=== PATIENT | male | born 1955 | race Caucasian/White ===

== ENCOUNTER 2016-06-03 14:47 | Emergency (ER) | payer MEDICAID ==
[~2016-06-03] VITALS: Ht 172.7 cm; Wt 65.0 kg
[~2016-06-03 14:47] MED LIST: ALBU17AE12; ALBU8.5H3 INH; ALBU8.5H5 IH; AZIT250T94 PO; BECL8.7A5; BENZ100C70 PO; BUDE6HFA IH; CODE118S PO; DESL5TAB20 PO; GLIP5TAB13; INSU100C5 SQ; INSU100V18; INSU100V19; LISI-313; LISINOPRIL; LOSA100T47 PO; MECLIZINE HCL25 M1 PO; MELO-110 PO; METF500T3; METF500T4; METF500T4 PO; MONT10TA21 PO; PRED-253; PRED20TA PO; PROVENTIL; RTPRO IH; SIMV40TA2; SYMB80120 INHALATION
[2016-06-03 14:49] VITALS: Ht 172.7 cm; Wt 65.0 kg
[2016-06-03] MEDS ORDERED: predniSONE 20 MG TAB PO ONE (15:30)
[2016-06-03] MEDS ORDERED: ALBUTEROL 0.5% (NEB) 2.5 MG/0.5 ML AMP HHN STA (15:30)
[2016-06-03] MEDS ORDERED: ALBU18HF INHALATION (16:43)
[2016-06-03] MEDS ORDERED: PRED20TA PO (16:43)
[2016-06-03] MEDS ORDERED: FLUT9.9S NASAL (16:46)
--- NOTE | 2016-06-03 16:46 | ERD ---
ER Documentation Chief Complaint Date/Time DATE: 06/03/16 TIME: 16:44 Chief Complaint cough with sore throat and bilateral inspiratory and expiratory wheezing HPI This 61-year-old male presents with cough and wheezing for last 2 days. He has nasal congestion as well. Denies fevers or productive mucus or purulent sputum. He is out of his Ventolin inhaler per ROS All systems reviewed and are negative except as per history of present illness. Medications Home Meds Active Scripts Prednisone* (Prednisone*) 20 Mg Tab, 60 MG PO DAILY for 5 Days, #12 TAB Start June 04, 2016. Take 60 mg by mouth for 2 days then 40 mg by mouth for 3 days. Prov:RADHA LEYVA MD 06/03/16 Albuterol Sulfate* (Ventolin HFA*) 18 Gm Hfa.aer.ad, 2 PUFF INHALATION Q4H, #1 INHALER Prov:RADHA LEYVA MD 06/03/16 Budesonide-Formoterol Fumarate* (Symbicort*) 80-4.5 Inha, 2 PUFFS INHALATION BID , #1 EACH Prov:ADRIA,ARASH DO 10/17/15 Albuterol Sulfate* (Proair HFA*) 8.5 Gm Hfa.aer.ad, 2 PUFF INH Q4H Y for WHEEZING AND SOB, #1 INHALER Prov:ADRIAARASH DO 10/17/15 Prednisone* (Prednisone*) 20 Mg Tab, 40 MG PO DAILY for 4 Days, TAB Prov:ADRIAARASH DO 10/17/15 Promethazine w/Codeine (Phenergan w/Codeine Syrup) 5 Ml Syrup, 5 ML PO Q6 Y for COUGH, #4 OZ Prov:CHO,ROSA 09/27/14 Benzonatate* (Tessalon Perle*) 100 Mg Capsule, 200 MG PO Q8H Y for COUGH, #21 CAP Prov:CHO,ROSA 09/27/14 Albuterol Sulfate* (Albuterol Sulfate* HFA) 8.5 Gm Hfa.aer.ad, 2 PUFF IH Q4H Y for WHEEZING AND SOB, #1 EA Prov:CHO,ROSA 09/27/14 Prednisone* (Prednisone*) 20 Mg Tab, 40 MG PO DAILY for 4 Days, TAB Prov:CHO,ROSA 09/27/14 Azithromycin* (Zithromax*) 250 Mg Tablet, 250 MG PO .CHRISTINE DIRECTED, #6 TAB TAKE 500 MG (2 TABS) THE FIRST DAY THEN 250 MG (1 TAB) DAYS 2-5 Prov:ROSA KUHN 09/27/14 Reported Medications Albuterol Sulfate* (Proventil* Neb) 3 Ml Nebu, 3 ML IH BID Y 09/04/11 Budesonide-Formoterol Fumarate* (Symbicort*) 6 Gm Hfa.aer.ad, 6 GM IH BID 09/04/11 Insulin Glargine,Hum.rec.anlog (Lantus) 100 U/Ml Cartridge, 25 SQ HS 09/04/11 Losartan Potassium* (Cozaar*) 100 Mg Tablet, 100 MG PO DAILY 09/04/11 Desloratadine (Clarinex) 5 Mg Tablet, 5 MG PO DAILY 09/04/11 Montelukast Sodium* (Singulair*) 10 Mg Tablet, 10 MG PO DAILY 09/04/11 Meloxicam* (Mobic*) 15 Mg Tablet, 15 MG PO DAILY 09/04/11 Meclizine Hcl (Meclizine Hcl) 25 Mg Tab.chew, 25 MG PO TID Y 09/04/11 Metformin* (Glucophage*) 500 Mg Tab, 500 MG PO BID 09/04/11 Insulin Glargine,Hum.rec.anlog (Lantus) 100 U/Ml Vial 09/29/09 Insulin Lispro (Humalog) 100 U/Ml Vial 09/29/09 Albuterol (Proventil) 17 Gm Aerosol 09/29/09 Beclomethasone Dip* (Qvar 80*) 7.3 Gm Inha 09/29/09 Metformin* (Glucophage*) 500 Mg Tab 09/29/09 Simvastatin* (Zocor*) 40 Mg Tablet 09/29/09 [Lisinopril] No Conflict Check 09/29/09 Metformin Hcl* (Metformin Hcl* ER) 500 Mg Tab.sr.24h 09/07/09 Glipizide* (Glipizide*) 5 Mg Tablet 09/07/09 Simvastatin* (Zocor*) 40 Mg Tablet 09/07/09 Lisinopril* (Lisinopril*) 5 Mg Tablet 09/07/09 [Proventil] No Conflict Check 07/30/09 Prednisone (Prednisone) 5 Mg Tablet 07/30/09 Allergies Allergies: Coded Allergies: No Known Drug Allergies (Verified Allergy, Mild, 09/27/14) PMhx/Soc History of Surgery: No Anesthesia Reaction: No Hx Neurological Disorder: No Hx Respiratory Disorders: Yes (URI) Hx Cardiac Disorders: Yes (HTN) Hx Psychiatric Problems: No Hx Miscellaneous Medical Probl: Yes (DM) Hx Alcohol Use: No Hx Substance Use: No Hx Tobacco Use: No Smoking Status: Never smoker Physical Exam Vitals Vital Signs Date Time Temp Pulse Resp B/P Pulse Ox O2 Delivery O2 Flow Rate FiO2 06/03/16 16:17 75 18 92 21 06/03/16 14:49 98.7 75 18 178/80 92 Physical Exam Const: [] Alert, [id number] per Head: Atraumatic Eyes: Normal Conjunctiva ENT: Normal External Ears, Nose and Mouth. Neck: Full range of motion..~ No meningismus. Resp: Clear to auscultation bilaterally. Diffuse wheezing without rales or retractions. Cardio: Regular rate and rhythm, no murmurs Abd: Soft, non tender, non distended. Normal bowel sounds Skin: No petechiae or rashes Back: No midline or flank tenderness Ext: No cyanosis, or edema Neur: Awake and alert Psych: Normal Mood and Affect Results 24 hrs Current Medications Medications (Trade) Dose Ordered Sig/Buffy Route PRN Reason Start Time Stop Time Status Last Admin Dose Admin Prednisone (Prednisone) 60 mg ONCE ONCE PO 06/03/16 15:30 06/03/16 15:31 06/03/16 15:46 Albuterol (Proventil 0.5% (Neb)) 5 mg ONCE STAT HHN 06/03/16 15:30 06/03/16 15:31 06/03/16 16:14 Procedures/MDM Patient was given albuterol treatment 1 and prednisone 60 mg by mouth. Patient presents with acute asthma exacerbation, likely due to recent URI. She had a short course of prednisone and refill of his Ventolin. He will be given Flonase for nasal congestion. Signs or symptoms do not suggest hypoxemia or respiratory distress no signs of pneumonia, cardiac chest pain abdominal pain. The patient was stable with no new complaints during the ER course. Clinically, there is no current evidence to suggest meningitis, sepsis, acute abdomen, pneumonia, acute coronary syndrome, pulmonary embolism, or any other emergent condition appearing to require further evaluation or hospitalization. The patient should certainly return for any new or worsening symptoms per the aftercare instructions. They should otherwise follow-up with her primary care doctor for reevaluation this week. Departure Diagnosis: Primary Impression: Wheezing Additional Impression: URI (upper respiratory infection) URI type: unspecified URI Qualified Code: J06.9 - Upper respiratory tract infection, unspecified type Condition: Stable Patient Instructions: Asthma Additional Instructions: Cheque otro vez con carpenter doctor primario en el proximo myers or regresa para mas o nueva simptomas. RADHA LEYVA MD Jun 03, 2016 16:46
== END 2016-06-03 17:01 | disposition home or self-care (01) ==
LOC: FTE 14:47
DX: J45.901 Unspecified asthma with (acute) exacerbation (principal); J06.9 Acute upper respiratory infection, unspecified; I10 Essential (primary) hypertension; E11.9 Type 2 diabetes mellitus without complications; Z79.4 Long term (current) use of insulin; Z79.84 Long term (current) use of oral hypoglycemic drugs
CPT/HCPCS: 94664; J7512; Z7502; Z7610